=== PATIENT | male | born 1970 | race Caucasian/White ===

== ENCOUNTER 2025-11-12 10:10 | Emergency (ER) | payer OTHER, SELFPAY ==
--- NOTE | 2025-11-12 10:11 | ED_ITS ---
HPI - URI/Sore Throat General Chief Complaint: Upper Respiratory Infection Stated Complaint: cold/flu symptoms Time Seen by Provider: 11/12/25 10:24 Source: patient and RN notes reviewed Mode of arrival: ambulatory Limitations: no limitations History of Present Illness HPI Narrative: 55-year-old male presents to the [facility] with 5 day history of sore throat, chills, sneezing, cough, body aches. Patient reports fevers as high as 102. Has been taken ibuprofen and Mucinex. Did not receive flu shot this year. Onset (ago): day(s) (5) Treatments prior to arrival: ibuprofen and cold medicine Related Data Home Medications ?Medication ?Instructions ?Recorded ?Confirmed ?Last Taken ?Type ysnxegdtbo-qipjegthxlbjg-vkfrpmpo tablet 11/12/25 Unk nown History 50 mg-325 mg-40 mg tablet carbamazepine 200 mg tablet mg 11/12/25 Unknown Histo ry Allergies Allergy/AdvReac Type Severity Reaction Status Date / Time No Known Allergies Allergy Verified 11/12/25 10:30 Review of Systems Review of Systems: All systems reviewed & are unremarkable except as noted in HPI and below Constitutional: Constitutional: Reports as per HPI, Reports body ache(s), Reports chills, Reports fatigue and Reports fever(s) ENT: Reports as per HPI Cardiovascular: Cardiovascular: Reports no additional cardiovascular complaints, Denies chest pain and Denies dyspnea Respiratory: Respiratory: Reports as per HPI, Denies chest congestion, Reports cough and Denies dyspnea Musculoskeletal: Musculoskeletal: Reports no additional musculoskeletal complaints Integumentary/Breasts: Skin/Breast: Reports system reviewed and no additional complaints, except as docu PMFSH Comments At the time of my signature, I reviewed and agree with the nursing past medical, surgical, social, and family history. There is no relevant family history pertinent to the patient complaint. Exam Const: General: cooperative, no acute distress, well developed, alert, tired appearing, uncomfortable and well nourished Nutritional Appearance: well nourished Orientation/consciousness: patient oriented x3 Limitations: no limitations HENMT: Head: normal to inspection Ears: hearing grossly normal bilaterally, external ears normal, TM's normal bilaterally, EAC's normal, mastoids normal and no periauricular adenopathy Face and sinus: normal facial exam, sinuses nontender and face symmetric Mouth: Yes Normal oral and palatal mucosa present, Yes lip normal, Yes tongue normal and Yes moist mucous membranes Throat: posterior oropharynx normal, uvula midline and no uvular edema Eyes: General: appearance normal, both eyes and all related structures Alignment and Position: alignment normal Neck: Neck: normal visual inspection, full ROM, no lymphadenopathy and no meningeal signs Chest: Chest palpation & inspection: normal inspection of the chest Resp: Effort & Inspection: normal respiratory effort and able to speak in complete sentences Auscultation: clear to auscultation bilaterally, no crackles, no rales, no rhonchi and no wheezes Cardio: Rate: regular rate Skin: General skin exam: normal color and no rashes or lesions noted Neuro: General: patient oriented x3, gait normal, moves all extremities and no meningeal signs Cognition (Neuro): normal cognition Speech: normal speech Gait exam (Neuro): Normal gait present Extrem: General: normal to inspection, full ROM, capillary refill normal and normal gait Psych: Appearance: grossly normal and well kempt Mental Status: mental status grossly normal Speech and movement: Normal speech and movement present and Clear speech present Affect: normal affect Attitude: cooperative Course Course Level of Care: Express Care Visit Vital Signs Vital signs: Vital Signs Temperature 99.1 F 11/12/25 10:20 Pulse Rate 78 11/12/25 10:20 Respiratory Rate 18 11/12/25 10:20 Blood Pressure 154/86 H 11/12/25 10:20 Pulse Oximetry 100 11/12/25 10:20 Oxygen Delivery Room Air 11/12/25 10:20 Temperature 99.1 F 11/12/25 10:20 Pulse Rate 78 11/12/25 10:20 Respiratory Rate 18 11/12/25 10:20 Blood Pressure 154/86 H 11/12/25 10:20 Pulse Oximetry 100 11/12/25 10:20 Oxygen Delivery Room Air 11/12/25 10:20 reviewed MDM MDM Narrative Medical decision making narrative: Patient sitting in exam room. Patient is nontoxic, vitals stable except blood pressure mildly elevated patient presents 5 day history of URI symptoms. Patient is flu A positive patient negative for strep and COVID patient appropriate for outpatient treatment with close follow-up Discharge instructions reviewed with patient, as well as provided in writing per nursing staff. The instructions also include specific and strict return/GO TO THE ER as well as f/u information. All questions have been answered, and the patient deny any further questions with discharge and discharge plan. Some parts of this dictation were generated by voice recognition software and may contain typographical and/or grammatical inaccuracies. Differential Diagnosis Differential Diagnosis: Differential diagnostic considerations for upper respiratory infection include upper respiratory infection, croup, otitis media, sinusitis, viral infection, bronchitis, influenza, pharyngitis, strep, uvulitis.? Lab Data MDM Lab Attestation statement: I personally reviewed the patient's lab results. Labs: Lab Results 11/12/25 11/12/25 Range/Units 10:31 10:37 POC Influenza A Ag Positive (Negative) POC Influenza B Ag Negative (Negative) POC SARS CoV-2 Ag Negative (Negative) POC Grp A Strep Screen Negative (Negative) Reviewed Discharge Plan Discharge Clinical Impression: Influenza A Patient Disposition: Home Condition: Stable Instructions: Antibiotic Form, Influenza (ED) Additional Instructions: today your blood pressure was 154/86. Please follow-up with your primary care provider within 2 weeks to have this rechecked Your rapid strep swab was negative today at [facility]. A throat culture will be sent to the laboratory for further testing. If the test is positive, you will receive a phone call within 48 hours and an appropriate antibiotic will be initiated at that time. Your rapid COVID test were negative Your rapid flu test was positive for influenza A Your symptoms likely due to a viral illness, which is not treated with antibiotics. Typically viral infections last 7-10 days, can linger for couple of weeks. It is very important to treat your symptoms. Drink plenty of water, Gatorade, Pedialyte, ice pops or Jell-O. -Alternate Tylenol and Motrin per package directions for fever or pain. You can alternate every 4 hours -Antihistamine medication such as Zyrtec/Claritin/Oralia during the day can help improve symptoms. -doing daily nasal irrigations can help relieve pressure your sinuses. Things like a Neti pot -Use Flonase twice a day for 5 days then daily to help reduce the inflammation and dry up your sinuses. -You can also use Mucinex. Be sure to drink plenty of water with this medication at least 8 ounces with every dose and it is important to drink 8 to 10 glasses of water per day. Water is a natural decongestant -Eat and drink things that are easy to swallow, like tea or soup, or popsicles. -Oral rinses such as: Salt water gargles and/or may use topical anesthetic (eg. Chloraseptic spray) or lozenges to relieve dryness or throat pain). -Frequent hand washing or hand inspector materials and processes is one of the best ways to prevent spread of infection. -Using a vaporizer or humidifier at night will also help thin secretions and help with coughing up phlegm. -Follow up with primary care provider in 7-10 days if condition is not improving - For new or worsening symptoms go directly to the nearest ER Patient Language: Upper Sorbian Prescriptions: No Action vjdnclliov-hisjwsjsobupd-tlhz 50-325-40 mg tablet carbamazepine 200 mg tablet Follow-up/Referrals: Cali,Efra Mills MD [Primary Care Provider, Unknown] Stand Alone Forms: Work/School Release IP Time of Disposition: 10:36
[2025-11-12 10:20] VITALS: BP 154/86; PULSE 78; RESP 18; TEMP 37.3; O2SAT 100
[2025-11-12 10:35] LABS: EDSTREPNEGPOS1 Negative (Negative)
--- OUTSIDE RECORDS SUMMARY | 2025-11-12 10:37 | XMS_ITS | Clinical Summary ---
Author Organization [facility] Address [address] [place] [address] Care Team Providers Care Assembler Dc Field Yoke Name Role Phone Efra Leiva MD Primary Care Provider [phone] Source Comments [facility],non-owned Affiliates and Associated Physician Practices is amultiple site organization consisting of ambulatory clinics and hospital sitesin [place], [place], [place] and [place]. This disclosure is being madepursuant to the Care Everywhere program and may not contain all information available regarding this patient. Last updated 18.[facility] Allergies No known active allergies Medications * Be aware that medications may not be up to date on this document. Alwaysverify current medications with the patient. propranolol (INDERAL) 60 MG tabletIndicatio ns:Intractable migraine without aura and with status migrainosus Take 1 tablet by mouth once daily 30 tablet 5 07/12/20 18 Active Additional Information Patient not taking.Reported on 03/01/2019 metoclopramide (REGLAN) 10 MG tabletIndicatio ns:Intractable migraine without aura and with status migrainosus Take 1 tablet by mouth 2 times daily as needed for Nausea/Vomiting 20 tablet 5 07/12/20 18 Active Additional Information Patient not taking.Reported on 04/04/2019 rizatriptan (MAXALT) 10 MG tabletIndicatio ns:Intractable migraine without aura and with status migrainosus Take 1 (one) tablet by mouth every 12 hours as needed for Migraine 9 tablet 5 10/12/20 21 Active Galcanezumab-gn lm (Emgality) 120 MG/ML auto-injector penIndications: Intractable cluster headache syndrome, unspecified chronicity pattern Inject 2 mL subcutaneously every 30 days 2 mL 3 10/17/20 23 Active ZOLMitriptan, disintegrating, (Zomig ZMT) 5 MG tabletIndicatio ns:Trigeminal neuralgia,Intra ctable cluster headache syndrome, unspecified chronicity pattern Take 1 (one) tablet by mouth as needed Maximum daily dose: 10 mg/24 hours 9 tablet 6 10/17/20 23 Active rimegepant (Nurtec) 75 MG tabletIndicatio ns:Intractable migraine without aura and with status migrainosus Take 75 mg by mouth once daily as needed for Migraine 10 tablet 5 01/15/20 25 Active carBAMazepine (TEGretol) 200 MG tabletIndicatio ns:Trigeminal neuralgia,Intra ctable cluster headache syndrome, unspecified chronicity pattern Take 1 (one) tablet by mouth 2 times daily after meals 180 tablet 2 08/02/20 25 Active butalbital-acet aminophen-caffe ine (Fioricet) 50-325-40 MG tabletIndicatio ns:Intractable migraine without aura and with status migrainosus Take 1 (one) tablet by mouth every 8 hours as needed For pain. 30 tablet 1 10/07/20 25 Active butalbital-acet aminophen-caffe ine (Fioricet) 50-325-40 MG tabletIndicatio ns:Intractable migraine without aura and with status migrainosus TAKE 1 TABLET BY MOUTH EVERY 8 HOURS NEEDED FOR PAIN 30 tablet 1 10/09/20 25 Active Active Problems Problem Noted Date Diagnosed Date Esophageal obstruction due to food impaction 08/2025 Chronic migraine 03/01/2019 Intractable migraine without aura and with status migrainosus 07/12/2018 Chronic daily headache 12/29/2016 Trigeminal neuralgia 12/24/2015 Encounters Date Type Department Care Team Description 10/06/[address] [place] [id number] Linda Kenny MD Refill Request 10/06/[address] [place] [address] Linda Kenny MD MEDICATION REFILL from Last 3 Months Family History Medical History Relation Name Comments Diabetes Father Stroke Mother Migraine Sister Relation Name Status Comments Father Mother Sister Social History Tobacco Use Types Packs/Day Years Used Date Smoking Tobacco: Never Smokeless Tobacco: Current Alcohol Use Standard Drinks/Week Comments No 0 (1 standard drink = 0.6 oz pur e alcohol) Sex and Gender Information Value Date Recorded Sex Assigned at Not on file Legal Sex Male 10:26 AM CDT Gender Identity Not on file Sexual Orientation Not on file Last Filed Vital Signs Vital Sign Reading Time Taken Comments Blood Pressure 138/84 10/22/2019 1:20 PM PLASTIC CNC MACHINE OPERATOR Pulse 88 10/22/2019 1:20 PM PLASTIC CNC MACHINE OPERATOR Temperature 36.3 C (97.4 F) 05/04/2016 12:45 PM CDT Respiratory Rate 18 10/22/2019 1:20 PM PLASTIC CNC MACHINE OPERATOR Oxygen Saturation 97% 10/22/2019 1:20 PM PLASTIC CNC MACHINE OPERATOR Inhaled Oxygen Concentration - - Weight 77.7 kg (171 lb 6.4 oz) 10/22/2019 1:20 P M PLASTIC CNC MACHINE OPERATOR Height 175.3 cm (5' 9) 10/22/2019 1:20 PM PLASTIC CNC MACHINE OPERATOR Body Mass Index 25.31 10/22/2019 1:20 PM PLASTIC CNC MACHINE OPERATOR Plan of Treatment Health Maintenance Due Date Last Done Comments COLOGUARD (AGES 45-75) - COL ON CA SCREENING 1969 COLON MONITORING 1969 COLONOSCOPY - COLON CA SCREENING 1969 CT COLONOGRAPHY - COLON CA SCREENING 1969 Colorectal Cancer Screening 1969 FIT - COLON CA SCREENING 1969 FLEX SIG - COLON CA SCREENING 1969 LIPID TESTING 1969 HIV SCREENING 1984 HEPATITIS C SCREENING 07/29/1987 DTAP/TDAP/TD VACCINES (1 - Tdap) 1988 HEPATITIS B VACCINE (1 of 3 - + 3-dose series) 1988 PNEUMOCOCCAL VACCINE 50+ (1 of 1 - PCV) 2019 ZOSTER VACCINE (1 of 2) 2019 DEPRESSION SCREENING 11/14/2024 COVID-19 VACCINE (3 - 2024-2 6 season) 2025 04/26/2021, 03/29/2021 INFLUENZA VACCINE (#1) 2025 HIB VACCINE Aged Out No longer eligi ble based on patient's age to complete this topic HPV VACCINE Aged Out No longer eligi ble based on patient's age to complete this topic MENINGOCOCCAL (Group B) VACCINE SHARED DECISION-MAKING Aged Out No longer eligible based on patient's age to complete this topic MENINGOCOCCAL GROUPS A/C/Y/W VACCINE Aged Out No longer eligible b ased on patient's age to complete this topic Insurance [employer] Care Teams Assembler Dc Field Yoke Relationship Specialty Start Date End Date Efra Leiva MD PCP - General Internal Medicine 10/22/19
--- OUTSIDE RECORDS SUMMARY | 2025-11-12 10:37 | XMS_ITS | Clinical Summary ---
Author Organization [facility] Address [address] [place] [address] Phone Care Team Providers Care Assistant Hall Director Name Role Phone Dru Neves PAC Primary Care Provider [phone] Valerie HERNANDEZ MD, Stefanie Unavailable [phone] Allergies No known active allergies Medications butalbital-aceta minophen-caffein e (FIORICET, ESGIC) 50-325-40 MG Tablet Take 1 Tab by mouth every 4 hours as needed for Headaches. Active carBAMazepine (TEGretol) 200 MG Tablet Take 200 mg by mouth 2 times daily. 6 Active Naproxen Sodium 220 MG Capsule Take by mouth. Active predniSONE (DELTASONE) 10 MG TabletIndication s:Herpes zoster without complication Take 4 tab PO daily x 2 days, 3 tab PO daily x 2 days, 2 tab PO daily x 2 day, 1 tab PO daily x 2 days. 20 Tablet 3 Active Additional Information Patient not taking.Reported on 06/28/2025 multi-vitamins Tablet Take 1 Tablet by mouth daily. Active guaiFENesin (MUCINEX PO) Take by mouth. Ac tive Active Problems Problem Noted Date Diagnosed Date Chronic migraine 03/01/2019 12/08/2023 Decreased libido without sexual dysfunction 03/15 Trigeminal neuralgia 12/24/2015 12/08/2023 Immunizations Immunization Administration Dates Next Due Covid-19, Mrna, Lnp-s, PF, 1 00 mcg/0.5 mL Dose (Moderna) 04/26/2021,03/29/2021 Family History Medical History Relation Name Comments Cancer Father lymphoma Diabetes Father Heart Attack Mother Relation Name Status Comments Father Alive Mother Alive Social History Tobacco Use Types Packs/Day Years Used Date Smoking Tobacco: Never Smokeless Tobacco: Never Tobacco Cessation:Counseling Given: Not Answered Alcohol Use Standard Drinks/Week Comments No 0 (1 standard drink = 0.6 oz pur e alcohol) [facility] Utilities Answer Date Recorded In the past 12 months has e electric, gas, oil, or water company threatened to shut off services in your home? No 12/08/2023 Social Connection and Isolation Panel Answer Date Recorded In a typical week, how many times do you talk on the phone with family, friends, or neighbors? Patient declined 12/08/2023 How often do you get togethe r with friends or relatives? Patient declined 12/08/2023 How often do you attend anglican or mandaeism serv ices? Patient declined 12/08/2023 Do you belong to any clubs o r organizations such as anglican groups, unions, fraternal or athletic groups, or school groups? Patient declined 12/08/2023 How often do you attend meet ings of the clubs or organizations you belong to? Patient declined 12/08/2023 Are you , , di vorced, , never , or living with a partner? 12/08/2023 AUDIT-C Answer Date Recorded Q1: How often do you have a drink containing alcohol? Never 12/08/2023 Q2: How many drinks containi ng alcohol do you have on a typical day when you are drinking? Patient does not drink Q3: How often do you have si x or more drinks on one occasion? Never 12/08/2023 Overall Financial Resource Strain (CARDIA) Answe r Date Recorded How hard is it for you to pa y for the very basics like food, housing, medical care, and heating? Not very hard 12/08/2023 PHQ-2 Answer Date Recorded Total Score - Questions 1-9 0 08/15 [facility] [place] of Occupat ional Health - Occupational Stress Questionnaire Answer Date Recorded Do you feel stress - tense, restless, nervous, or anxious, or unable to sleep at night because your mind is troubled all the time - these days? Not at all 12/08/2023 Exercise Vital Sign Answer Date Recorde d On average, how many days pe r week do you engage in moderate to strenuous exercise (like a brisk walk)? Patient declined On average, how many minutes do you engage in exercise at this level? Patient declined 12/08/2023 Hunger Vital Sign Answer Date Recorded Within the past 12 months, y ou worried that your food would run out before you got the money to buy more. Never true 12/08/19 24 Within the past 12 months, t he food you bought just didn't last and you didn't have money to get more. Never true 12/08/2023 PRAPARE - Transportation Answer Date Re corded In the past 12 months, has l ack of transportation kept you from medical appointments or from getting medications? No 11/15 In the past 12 months, has l ack of transportation kept you from meetings, work, or from getting things needed for daily living? No 12/08/2023 Housing Stability Vital Sign Answer Parker e Recorded In the last 12 months, was t here a time when you were not able to pay the mortgage or rent on time? No 12/08/2023 In the last 12 months, how many places have you lived? 1 12/08/2023 In the last 12 months, was t here a time when you did not have a steady place to sleep or slept in a fci (including now)? No 12/08/2023 Sex and Gender Information Value Date Recorded Sex Assigned at Not on file Legal Sex Male 9:48 PM CDT Gender Identity Not on file Sexual Orientation Not on file Last Filed Vital Signs Vital Sign Reading Time Taken Comments Blood Pressure 142/88 06/28/2025 9:00 AM CDT Pulse 99 06/28/2025 9:00 AM CDT Temperature 36.9 C (98.5 F) 06/28/2025 9:00 AM CDT Respiratory Rate 16 06/28/2025 9:00 AM CDT Oxygen Saturation 98% 06/28/2025 9:00 AM CDT Inhaled Oxygen Concentration - - Weight 77.1 kg (170 lb) 06/28/2025 9:00 AM CDT Height 175.3 cm (5' 9) 06/28/2025 9:00 AM CDT Body Mass Index 25.1 06/28/2025 9:00 AM CDT Plan of Treatment Health Maintenance Due Date Last Done Comments Hepatitis C Virus (HCV) Screening 1969 TdaP Immunization 1969 Hepatitis B Immunization (1 of 3 - 19+ 3-dose series) 1988 Cologuard 2014 Colonoscopy 2014 Colorectal Cancer Screening 2014 Immunochemical Fecal Occult Blood 2014 Pneumococcal Immunization (5 0+ years) (1 of 1 - PCV) 2019 Respiratory Syncytial Virus (RSV) Immunization (Adult) (1 - Risk 50-74 years 1-dose series) 2019 Zoster Immunization (1 of 2) 2019 Influenza Immunization (#1) 2025 SARS-COV-2 Immunization (3 - season) 2025 04/26/2021, 03/29/2021 PSA Discussion Completed 07/11/2023 Human Papillomavirus (HPV) Immunization (No Doses Required) Completed Meningococcal Immunization (ACWY) Aged Out No longer eligible b ased on patient's age to complete this topic Rotavirus Immunization Aged Out No lo nger eligible based on patient's age to complete this topic Procedures Procedure Name Priority Date/Time Associated Diagnosis Comments PSA DIAGNOSTIC,TOTAL Routine 07/11/2023 1:44 PM CDT Enlarged prostate from Last 3 Months or Most Recently Relevant to Health Maintenance Results * PSA DIAGNOSTIC,TOTAL (07/11/2023 1:44 PM CDT) PSA, TOTAL (PROSTATIC SPECIFIC ANTIGEN) 0.40 <4.00 ng/mL 07/11/2023 5:14 PM CDT [facility] Blood Venipuncture / Unknown 07/11/2023 1:44 PM CDT 07/11/2023 4:24 PM CDT Narrative [facility] - 07/11/2023 5:14 PM CDT PSA NOTE: The PSA value should be used in conjunction with information available from clinical evaluation and other diagnostic procedures. The [employer] Total PSA assay is a Chemiluminescent Microparticle Immunoassay (CMIA) for the quantitative determination of total PSA (both free PSA and PSA complexed to [id number]) in human serum. Stefanie Padilla III, MD CHEMISTRY ORDERABLES Fin al Result [facility] [address] [place] [address] from Last 3 Months or Most Recently Relevant to Health Maintenance [place] [address] [address] [employer] [facility] Care Teams Assistant Hall Director Relationship Specialty Start Date End Date Dru Neves, PAC [address] [place] [id number] PCP - General Physician Paper Production Engineer 05/04/23 Stefanie Padilla III, MD [address] [place] [address] Consulting Physician Urology 07/11/23
[2025-11-12 10:39] LABS: EDCOVIDSCREEN Negative (Negative); EDINFLUASCREEN Positive (Negative); EDINFLUBSCREEN Negative (Negative)
== END 2025-11-12 10:47 | disposition home or self-care (01) ==
PROVIDERS: Emergency Provider Nurse Practitioner; PCP Internal Medicine
DX: J10.1 Influenza due to other identified influenza virus with other respiratory manifestations (principal); Z20.822 Contact with and (suspected) exposure to COVID-19
CPT/HCPCS: 87081; 87426; 87804; 87880; 99203; G0463